=== PATIENT | female | born 1950 | race Caucasian/White ===

== ENCOUNTER 2023-05-03 08:43 | Emergency (ER) | payer MEDICARE, SELFPAY ==
[2023-05-03 09:10] VITALS: BP 160/75; PULSE 63; RESP 16; TEMP 36.6; O2SAT 99; BMI 28.5
--- NOTE | 2023-05-03 09:19 | ED_ITS ---
HPI - Neck Pain/Injury General: Chief Complaint: Neck Pain/Injury Stated Complaint: neck pain 2xweeks Time Seen by Provider: 05/03/23 09:18 Source: patient Mode of arrival: ambulatory Limitations: no limitations History of Present Illness: Patient is a nice 72-year-old female presents to ED today with a complaint of right-sided neck pain that she has had over the past 2 weeks. She denies any known injury or trauma. He states pain seems to be worse with range of motion of her neck and her right shoulder. She denies any numbness, tingling, loss of sensation, or paresthesias or weakness to the upper extremities. She has not noticed any facial drooping/deficits. Does not complain of a headache, visual changes, or tinnitus. Patient has not been running fevers. No vomiting. She was seen in the walk-in clinic and given Flexeril and Voltaren gel which do not seem to be helping with pain. MD complaint: neck pain Onset (ago): week(s) Place: home Radiation: right lateral and right shoulder Severity: moderate Severity scale (1-10): 7 Quality: sharp, aching and spasming Duration: constant Relieving factors: none Exacerbating factors: movement of extremity and movement of neck Associated symptoms: Reports no associated symptoms; Denies dizziness, headache(s) or nausea Treatments prior to arrival: cold therapy, heat therapy and other (flexeril, Voltaren gel, aspirin) Review of Systems Const: Denies: fever(s), chills, body aches, fatigue or malaise Eyes: Denies: change in vision, blurry vision or blind spots ENMT: Denies: tinnitus Card: Denies: chest pain Resp: Denies: dyspnea GI: Denies: nausea or vomiting Musc: Reports: neck pain; Denies: back pain, extremity pain, extremity swelling, joint pain or joint swelling Skin/Breast: Denies: rash Neuro: Denies: headache(s), numbness in extremities, weakness in extremities, sensory changes or dizziness Physical Exam Const: COMMON NORMALS: no acute distress, average body habitus, patient oriented x3, no limitations, healthy appearing, alert and well nourished ORIENTATION/CONSCIOUSNESS: Yes awake, Yes oriented to person, Yes oriented to place and Yes oriented to time HENMT: COMMON NORMALS: normocephalic and atraumatic HEAD & SCALP: normal to inspection, normocephalic and atraumatic FACE & SINUS: normal facial exam and face symmetric Eye: COMMON NORMALS: Equal, round and reactive pupils present and EOMs intact bilaterally GENERAL EYE: appearance normal, both eyes and all related structures and normal light reflex PUPIL: Yes Equal, round and reactive pupils present DIRECT OPHTHALMOSCOPY: Yes normal light reflex OTHER: no Wen's Neck/C-Spine: COMMON NORMALS: no lymphadenopathy, supple, no meningeal signs, no JVD, Thyroid normal and No carotid bruits GENERAL: Yes normal visual inspection THYROID: Thyroid normal CERVICAL SPINE: Yes pain with cervical ROM, No Cervical spine tenderness, No step off deformity, Yes Paracervical muscle tenderness right and Yes Paracervical spasm right Resp: COMMON NORMALS: normal respiratory effort and clear to auscultation bilaterally AUSCULTATION: clear to auscultation bilaterally Cardio: COMMON NORMALS: no JVD, regular rate and regular rhythm RATE: regular rate RHYTHM: regular rhythm Extremity: COMMON NORMALS: normal to inspection, full ROM, capillary refill normal, no joint enlargement, no clubbing, cyanosis or edema, no calf tenderness and no pedal edema GENERAL: Yes normal exam except as noted Neuro: LOGAN COMA SCALE: document GCS findings Logan coma scale eye opening: Spontaneous [place] coma scale verbal response: Orientated Logan coma scale motor response: Obey commands [place] coma scale total score: 15 COMMON NORMALS: patient oriented x3, CN's II-XII intact bilaterally, moves all extremities, no focal motor deficits and no sensory deficits noted SENSORIUM/ORIENTATION: Yes alert, Yes oriented to person, Yes oriented to place and Yes oriented to time MENINGEAL SIGNS: Yes no meningeal signs MOTOR EXAM: 5/5 motor strength present throughout Skin: COMMON NORMALS: no rashes or lesions noted GENERAL SKIN EXAM: no rashes or lesions noted Course Vital Signs: Vital signs: Vital Signs Temperature 97.9 F 05/03/23 09:10 Pulse Rate 63 05/03/23 09:10 Respiratory Rate 16 05/03/23 09:10 Blood Pressure 160/75 05/03/23 09:10 Pulse Oximetry 99 05/03/23 09:10 Oxygen Delivery Me thod Room Air 05/03/23 09:10 MDM - Neck Pain/Injury Medical Decision Making Patient is a nice 72-year-old female who presented to ED today with a complaint of right-sided neck pain over the past 2 weeks. She feels like pain is a dull baseline pain with exacerbations that she describes as spasms that seem to be brought on with movement of her neck or right shoulder. She does not describe any paresthesias, numbness, tingling, loss of sensation, weakness to her upper extremities or anything that would be concerning for a cervical root lesion/cervical radiculopathy. She has no headache, Wen's syndrome, cranial neuropathy, pulsatile tinnitus, or ischemic/TIA symptoms that would suggest dissection. Patient was treated with IM toradol, norflex, and dexamethasone and she is currently rating her pain at a 2/10 which is much improved on presentation. Treat with similar medications at home. We will have her discontinue the Flexeril as she states this has not helped much and will try Valium instead. Recommend follow-up with primary care this week if symptoms do not seem to be improving. Strict return ED precautions given. Discharge Plan Discharge Patient Disposition: Home Clinical Impression: Neck muscle spasm Neck muscle strain Qualifiers: Encounter type: initial encounter Qualified Code(s): S16.1XXA - Strain of muscle, fascia and tendon at neck level, initial encounter Condition: Stable Prescriptions: New Valium 5 mg tablet 5 mg PO Q6H PRN (Reason: muscle spasm) Qty: 20 0RF ibuprofen 600 mg tablet 600 mg PO Q8H PRN (Reason: pain) Qty: 20 0RF prednisone 10 mg tablet 40 mg PO DAILY 5 Days Qty: 30 0RF Discontinued cyclobenzaprine 5 mg tablet 5 mg PO TID PRN (Reason: muscle spasm) Qty: 14 0RF No Action amlodipine 5 mg tablet 5 mg PO DAILY Women's 50+ Daily Form (gkb) 400-120 mcg-mg Tablet 1 tab PO DAILY Discharge Orders: Discharge ED (Routine); Ordered 05/03/23 Ordered By: Jennifer Sagastume Patient Instructions: Spasmodic Torticollis (ED), Muscle Spasm (ED) Coding Level of Care Code ED Gate Shear Operator for Bob Engle
[2023-05-03] MEDS: orphenadrine 30 mg/mL Inj 2 mL 60 MG IM (09:53)
[2023-05-03] MEDS: dexamethasone 10 mg/mL INJ 8 MG IM (09:56)
[2023-05-03] MEDS: ketorolac 30 mg/mL INJ IM (09:58)
--- NOTE | 2023-05-07 11:19 | DCPLANNER ---
media production support manager called patient due to no primary care physician - no answer at this time.
--- NOTE | 2023-05-10 13:58 | DCPLANNER ---
Addendum entered by Cheli Kirkpatrick 05/13/23 10:38: Patient attended appointment scheduled with Dr. Ríos at [facility] Original Note: Patient called case worker, she wanted help in getting established with a primary care physician. reproduction production manager called [facility], gave clinic patients information, a follow up appointment was scheduled for April at 10:[address] Ríos. reproduction production manager gave patient the appointment information.
== END 2023-05-03 10:57 | disposition home or self-care (01) ==
PROVIDERS: Emergency Provider Physician Assistant; PCP Family Medicine Adult Medicine
DX: S16.1XXA Strain of muscle, fascia and tendon at neck level, initial encounter (principal); X58.XXXA Exposure to other specified factors, initial encounter
CPT/HCPCS: 96372; 99284; J1100; J1885; J2360

== ENCOUNTER 2023-06-09 18:02 | Emergency (ER) | payer MEDICARE, SELFPAY ==
[2023-06-09] VITALS (18 sets, daily range): BP systolic 122–173; BP diastolic 68–84; PULSE 69–73; RESP 16; TEMP 36.6; O2SAT 95–99
--- NOTE | 2023-06-09 18:42 | W.ED.ABDPA2 ---
HPI - Abdominal Pain General: Chief Complaint: Abdominal Pain Stated Complaint: stomache pain, urgent care sent over Time Seen by Provider: 06/09/23 18:23 History of Present Illness: Patient presents to the ER from urgent care with complaints of epigastric pain severe in nature for the last 4 days worsening. Patient states the pain is a burning and does not radiate anywhere. Patient does have guarding to her upper abdomen rates pain a 10 out of 10. Patient does not remember eating any irritating foods or anything it made this pain come on or go away. Patient is denying nausea and vomiting at this time. Patient has had her gallbladder out. Review of Systems General: Reports: 10 or more systems reviewed and unremarkable except in HPI and below PFSH ED PFSH: Medical History Cirrhosis of liver without ascites Cyst of kidney, acquired Hypertension Neck muscle spasm Neck muscle strain Swollen lymph nodes Resolved after gallbladder surgery Surgical History H/O section H/O oophorectomy History of cholecystectomy History of tonsillectomy Hx of appendectomy Hx of tubal ligation Family History Father Emphysema lung Mother Cancer Social History Smoking and tobacco status: former smoker Quit status (tobacco): has quit using tobacco Second hand smoke exposure: No Smoking risk assessment/counseling performed?: No Alcohol intake: former Desire information about alcohol rehabilitation?: No Counseling given: No Substance/Drug Use: never Desire information about substance/drug rehabilitation?: No Counseling given: No Physical Exam Const: COMMON NORMALS: no acute distress, average body habitus, patient oriented x3, no limitations, healthy appearing, alert and well nourished HENMT: COMMON NORMALS: normocephalic, atraumatic, hearing grossly normal bilaterally, external ears normal, Normal external nose present and moist oral mucous membranes HEAD & SCALP: normocephalic and atraumatic NOSE: Normal external nose present EXTERNAL EAR: Yes external ears normal Eye: COMMON NORMALS: Equal, round and reactive pupils present, EOMs intact bilaterally, conjunctivae normal and no scleral icterus CONJUNCTIVA: Yes conjunctivae normal PUPIL: Yes Equal, round and reactive pupils present Neck/C-Spine: COMMON NORMALS: full ROM, no lymphadenopathy, supple, no meningeal signs and no JVD Chest: COMMONS NORMALS: normal inspection of the chest and normal palpation of entire chest wall Resp: COMMON NORMALS: normal respiratory effort, No retractions, No use of accessory muscles and clear to auscultation bilaterally AUSCULTATION: clear to auscultation bilaterally Cardio: COMMON NORMALS: no JVD, regular rate, regular rhythm, S1 normal heart sound present, S2 normal heart sound present, No gallops present (Cardio), No clicks present (Cardio), No murmurs present (Cardio) and No rub (Cardio) RATE: regular rate RHYTHM: regular rhythm HEART SOUNDS: S1 normal heart sound present and S2 normal heart sound present GI: COMMON NORMALS: Normal to inspection, nondistended, normoactive bowel sounds present, Soft to palpation, No hepatosplenomegaly present and no masses; negative for non-tender (Tender to palpate worse over epigastric and right upper quadrant region.) PALPATION: Yes Soft to palpation and Yes No hepatosplenomegaly present : COMMON NORMALS: Yes no CVA tenderness BLADDER/KIDNEY EXAM: Yes no CVA tenderness Back/Pelvis: COMMON NORMALS: no CVA tenderness Neuro: COMMON NORMALS: patient oriented x3 SENSORIUM/ORIENTATION: Yes alert MENINGEAL SIGNS: Yes no meningeal signs Course Vital Signs: Vital signs: Vital Signs Temperature 97.9 F 06/09/23 18:28 Pulse Rate 69 06/09/23 19:06 Respiratory Rate 16 06/09/23 19:03 Blood Pressure 122/79 06/09/23 23:20 Pulse Oximetry 96 06/09/23 23:20 Oxygen Delivery Me thod Room Air 06/09/23 19:06 MDM - Abdominal Pain Medical Decision Making Patient presents to the ER with complaints of upper epigastric pain for the last 4 days. Patient had lab work which revealed her elevated liver enzymes and bilirubin. Patient had a CT scan with contrast which revealed to stones in her common bile duct. We called [facility] in [place] Jessica was the first 1 to talk to us and call us back. Dr. Samuel will be the accepting physician. Differential Diagnosis Unlikely abdominal pain, acute appendicitis, calculus of kidney, constipation, diverticulitis, endometriosis, gastroenteritis, pancreatitis or small bowel obstruction Medical Records I reviewed the patient's medical records. Lab Data I reviewed the patient's lab results. 06/09/23 19:00 06/09/23 19:00 Labs/Radiology: Radiology Impressions Abdomen/Pelvis CT 06/09/23 19:35 IMPRESSION: Exam demonstrates at least 2 distal common bile duct stones without significant biliary tree dilation. There also appears to be a calculus in the cystic stump. Laboratory Results WBC 9.53 10^3/uL (3.29-11.43) 06/09/23 19:00 RBC 5.71 10^6/uL (3.85-5.65) H 06/09/23 19:00 Hgb 16.50 g/dL (11.27-16.99) 06/09/23 19:00 Hct 51.8 % (36-47) H 06/09/23 19:00 MCV 90.7 fl (85-98) 06/09/23 19:00 MCH 28.9 pg (27-33) 06/09/23 19: MCHC 31.9 g/dL (30-55) 06/09/23 19:00 RDW 14.4 % (12.1-15.1) 06/09/23 19:00 Plt Count 211 10^3/cmm (157-399) 06/09/23 19:00 MPV 11.7 fL (7.4-10.4) H 06/09/23 19:00 Neut % (Auto) 82.7 % 06/09/23 19:00 Lymph % (Auto) 8.5 % 06/09/23 19:00 Noble % (Auto) 6.3 % 06/09/23 19:00 Eos % (Auto) 1.7 % 06/09/23 19:00 Baso % (Auto) 0.5 % 06/09/23 19:00 Neut # (Auto) 7.88 10^3/uL (1.8-7.7) H 06/09/23 19:00 Lymph # (Auto) 0.8 10^3/uL (0.8-4.8) 06/09/23 19:00 Noble # (Auto) 0.6 10^3/uL (0.2-0.9) 06/09/23 19:00 Eos # (Auto) 0.2 10^3/uL (0.0-0.8) 06/09/23 19:00 Baso # (Auto) 0.1 10^3/uL (0.0-0.1) 06/09/23 19:00 Nucleated RBC % (auto) 0 % 06/09/23 19:00 Nucleated RBCs # 0.0 /100WBC 06/09/23 19:00 Sodium 137 mmol/L (136-145) 06/09/23 19:00 Potassium 3.9 mmol/L (3.5-5.1) 06/09/23 19:00 Chloride 103 mmol/L (98-107) 06/09/23 19:00 Carbon Dioxide 23 mmol/L (22-29) 06/09/23 19:00 Anion Gap 14.9 (5-19) 06/09/23 19:00 BUN 19 mg/dL (8-23) 06/09/23 19:00 Creatinine 1.4 mg/dL (0.5-0.9) H 06/09/23 19:00 GFR Calculation Not Reportable 06/09/23 19:00 Glucose 97 mg/dL (65-115) 06/09/23 19:00 Calculated Osmolality 286 mOsm/kg (285-295) 06/09/23 19:00 Calcium 10.3 mg/dL (8.5-10.5) 06/09/23 19:00 Magnesium 2.4 mg/dL (1.7-2.3) H 06/09/23 19:00 Total Bilirubin 5.8 mg/dL (0.15-1.2) H 06/09/23 19:00 Direct Bilirubin 4.80 mg/dL (0.00-0.30) H 06/09/23 19:00 AST 173 U/L (0-32) H 06/09/23 19:00 ALT 216 U/L (0-33) H 06/09/23 19:00 Alkaline Phosphatase 378 U/L (35-105) H 06/09/23 19:00 Total Protein 7.3 g/dL (6.6-8.7) 06/09/23 19:00 Albumin 3.9 g/dL (3.5-5.2) 06/09/23 19:00 Globulin 3.4 g/dL (1.3-4.6) 06/09/23 19:00 Lipase 97 U/L (13-60) H 06/09/23 19:00 Urine Color Yellow (Yellow) 06/09/23 20:32 Urine Appearance Sl hazy (CLEAR) A 06/09/23 20:32 Urine pH 5 (5-7) 06/09/23 20:32 Ur Specific [place] 1.015 (1.005-1.030) 06/09/23 20:32 Urine Protein 1+ (Negative) H 06/09/23 20:32 Urine Glucose (UA) Trace (Normal) H 06/09/23 20:32 Urine Ketones 1+ (Negative) H 06/09/23 20:32 Urine Blood Neg (Negative) 06/09/23 20:32 Urine Nitrate Negative (Negative) 06/09/23 20:32 Urine Bilirubin 2+ (Negative) H 06/09/23 20:32 Urine Urobilinogen 4 mg/dL (Negative) H 06/09/23 20:32 Ur Leukocyte Esterase 1+ (Negative) H 06/09/23 20:32 Urine RBC None /hpf (0-2) 06/09/23 20:32 Urine WBC 5-10 /hpf (0-5) H 06/09/23 20:32 Ur Squamous Epith Cells 0-4 /hpf (0-5) H 06/09/23 20:32 Calcium Oxalate Crystal 10-15 /hpf H 06/09/23 20:32 Amorphous Sediment Not Reportable 06/09/23 20:32 Urine Bacteria 1+ /hpf (NONE) H 06/09/23 20:32 Discharge Plan Discharge Patient Disposition: Xfer Short-Term Hosp Clinical Impression: Choledocholithiasis Condition: Stable Coding Level of Care Code ED Auto Bench Mechanic for Yoselyng Kadie
[2023-06-09] MEDS: fentaNYL 50 mcg/mL INJ 2mL IVP (19:03)
[2023-06-09 19:10] LABS: Basophils # 0.1 10^3/uL (0.0-0.1); Basophils % 0.5 %; Eosinophils # 0.2 10^3/uL (0.0-0.8); Eosinophils % 1.7 %; Hematocrit 51.8 % (36-47); Lymphocytes # 0.8 10^3/uL (0.8-4.8); Lymphocytes % 8.5 %; Mean Corpuscular HGB Conc 31.9 g/dL (30-55); Mean Corpuscular Hemoglobin 28.9 pg (27-33); Mean Corpuscular Volume 90.7 fl (85-98); Mean Platelet Volume 11.7 fL (7.4-10.4); Monocytes # 0.6 10^3/uL (0.2-0.9); Monocytes % 6.3 %; Neutrophils # 7.88 10^3/uL (1.8-7.7); Neutrophils % 82.7 %; Nucleated Red Blood Cells % 0 %; Platelet Count 211 10^3/cmm (157-399); Red Blood Count 5.71 10^6/uL (3.85-5.65); Red Cell Distribution Width 14.4 % (12.1-15.1); White Blood Count 9.53 10^3/uL (3.29-11.43)
[2023-06-09 19:25] LABS: Alanine Aminotransferase 216 U/L (0-33); Albumin Level 3.9 g/dL (3.5-5.2); Alkaline Phosphatase 378 U/L (35-105); Anion Gap 14.9 (5-19); Aspartate Amino Transferase 173 U/L (0-32); Blood Urea Nitrogen 19 mg/dL (8-23); Calcium 10.3 mg/dL (8.5-10.5); Carbon Dioxide 23 mmol/L (22-29); Chloride 103 mmol/L (98-107); Globulin 3.4 g/dL (1.3-4.6); Glucose 97 mg/dL (65-115); Lipase 97 U/L (13-60); Magnesium 2.4 mg/dL (1.7-2.3); Osmolality Calculated 286 mOsm/kg (285-295); Potassium 3.9 mmol/L (3.5-5.1); Sodium 137 mmol/L (136-145); Total Bilirubin 5.8 mg/dL (0.15-1.2); Total Protein 7.3 g/dL (6.6-8.7)
--- NOTE | 2023-06-09 19:35 | CTR_ITS ---
PROCEDURE INFORMATION: Exam: CT Abdomen And Pelvis With Contrast Exam date and time: 06/09/2023 7:58 PM Age: 73 years old Clinical indication: Abdominal pain; Epigastric; Prior surgery; Surgery date: 6+ months; Surgery type: Appy , darek, ovary removed; Additional info: Epigastric abd pain, elevated lfts and bilirubin, TECHNIQUE: Imaging protocol: Computed tomography of the abdomen and pelvis with contrast. Radiation optimization: All CT scans at this facility use at least one of these dose optimization techniques: automated exposure control; mA and/or kV adjustment per patient size (includes targeted exams where dose is matched to clinical indication); or iterative reconstruction. Contrast material: OMNI 350; Contrast volume: 100 ml; Contrast route: INTRAVENOUS (IV); REPORTING DATA: Count of CT and Cardiac NM exams in prior 12 months: This patient has received 0 known CTs and 0 known cardiac nuclear medicine studies in the 12 months prior to the current study. COMPARISON: No relevant prior studies available. RADIATION DOSE METRICS: Total DLP (mGy-cm): 569 FINDINGS: Lungs: Clear basilar lung parenchyma. Pleural spaces: No pleural fluid. Heart: Normal heart size. Diaphragm: Tiny sliding hiatal hernia. Liver: Normal configuration. Homogeneous parenchyma. Gallbladder and bile ducts: Prior cholecystectomy. There appears to be a calculus in the cystic duct stump. There is no biliary tree dilation, but there are at least 2 hyperdense foci in the distal common bile duct compatible with common duct stones. The more distal calculus measures 3 mm in diameter and the more proximal measures 2 mm in diameter. Pancreas: Normal. No ductal dilation. Spleen: Normal. No splenomegaly. Adrenal glands: Normal configuration. Kidneys and ureters: No evidence of obstruction. No visible inflammation. Stomach and bowel: Postprandial stomach. Normal caliber small bowel. Distal colonic diverticulosis without evidence of acute diverticulitis. Appendix: Prior appendectomy. Intraperitoneal space: No free air. No significant fluid collection. Vasculature: Mild aortoiliac calcific atherosclerosis without aneurysm. Lymph nodes: Anterior cardiophrenic lymph node measures 6 mm short axis diameter. No enlarged adenopathy elsewhere. Urinary bladder: Bladder is decompressed with mild nonspecific mural thickening. Reproductive: Physiologic appearance for age. Bones/joints: Mild lumbar dextroscoliosis. No destructive bony lesions. Soft tissues: Unremarkable. CT/CT abdomen pelvis w con* [id number] IMPRESSION: Exam demonstrates at least 2 distal common bile duct stones without significant biliary tree dilation. There also appears to be a calculus in the cystic stump.
[2023-06-09 20:54] LABS: Glucose Urine UA Trace (Normal); Protein Urine 1+ (Negative); Specific Gravity, Urine 1.015 (1.005-1.030); Urine Appearance SL Hazy (CLEAR); Urine Color Yellow (Yellow); pH Urine 5 (5-7)
[2023-06-09 20:55] LABS: Add Urine Culture? No; Add Urine Microscopic? YES; Bacteria Urine 1+ /hpf; Bilirubin Urine 2+ (Negative); Blood Urine Neg (Negative); Ketones Urine 1+ (Negative); Leukocyte Esterase Urine 1+ (Negative); Nitrate Urine Negative (Negative); Squamous Epithelial Cell Urine 0-4 /hpf (0-5); Urobilinogen Urine 4 mg/dL (Negative)
[2023-06-10] VITALS (18 sets, daily range): BP systolic 149–158; BP diastolic 74–82; PULSE 67; O2SAT 92–98
== END 2023-06-10 01:23 | disposition short-term general hospital (02) ==
PROVIDERS: Emergency Provider Emergency Medicine
DX: K80.50 Calculus of bile duct without cholangitis or cholecystitis without obstruction (principal); I10 Essential (primary) hypertension; Z87.891 Personal history of nicotine dependence
CPT/HCPCS: 74177; 80053; 81001; 82248; 83690; 83735; 85025; 96374; 99284; J3010; Q9967

== ENCOUNTER 2024-02-16 10:32 | Outpatient (CLI) | payer MEDICARE, SELFPAY ==
--- NOTE | 2024-02-16 10:34 | USCV_ITS ---
Jesenia Wetzel Age: 73 Gender: F : 1950 Exam Date: 02/16/2024 10:49 Ordering Phys: Pretty Gamboa DO Technologist: RUTH Exam Location: [facility] – [place] Indication: LE PAIN Risk Factors: Previous Vascular Surgery: RIGHT LEFT BP: 146.0 / 68.00 BP: 158.0/ 70.00 0 0 Waveform Velocity (cm/s) Velocity (cm/s) Waveform Triphasic 98.9 Iliac Prox 97.6 Triphasic Triphasic 104.1 Iliac Mid 87.4 Triphasic Triphasic 119.0 Iliac Distal 86.2 Triphasic Triphasic 150.0 STORE STOCKER 140.0 Triphasic Biphasic 94.0 SFA Prox 84.0 Monophasic Biphasic 109.0 SFA Mid 110.0 Monophasic Triphasic SFA Dist Monophasic 143.0 46.0 Triphasic 60.0 POP 32.0 Monophasic Biphasic 63.0 FIBER [employer]IC ASSEMBLY WORKER 28.0 Monophasic Biphasic 50.0 DPA 15.0 Monophasic 0.8 OTTO 0.5 FINDINGS Mild diffuse plaque in the iliac, femoral and popliteal arteries on the right side. Resting OTTO on the right zero 0.8. Mild to moderate diffuse plaques in the aortic and iliac and femoral arteries on the left side. Monophasic and continuous waveforms in the mid and distal SFA, popliteal and infrapopliteal vessels on the left side. Resting OTTO 0.5 on the left side CONCLUSIONS 1. Slightly diminished resting OTTO on the right side of 0.8, suggesting mild peripheral artery disease. Mild diffuse plaques are noted in the iliac, femoral and popliteal arteries on the right side. 2. Abnormal resting OTTO of 0.5 on the left side suggesting severe peripheral artery disease. The Doppler waveforms may suggest the level of obstruction at the SFA. No similar previous studies are available for comparison Dr Clive Choi MD [facility] (Electronically Signed) Final Date: 17 Feb 2024 09:06 S
== END 2024-02-16 10:33 | disposition home or self-care (01) ==
LOC: RAD 10:32
PROVIDERS: Visit Provider Family Medicine
DX: R09.89 Other specified symptoms and signs involving the circulatory and respiratory systems (principal); M79.605 Pain in left leg; M79.604 Pain in right leg; R93.6 Abnormal findings on diagnostic imaging of limbs
CPT/HCPCS: 93925

== ENCOUNTER 2024-02-17 10:44 | Outpatient (CLI) | payer MEDICARE, SELFPAY ==
--- NOTE | 2024-02-17 10:51 | MM_ITS ---
WS: [id number] BILATERAL 3D TOMOSYNTHESIS DIGITAL DIAGNOSTIC MAMMOGRAPHY WITH CAD CLINICAL INFORMATION: FAMILY HX OF BREAST CANCER/BILAT BREAST PAIN HISTORY: Pain in RIGHT breast COMPARISON: None. TECHNIQUE: Bilateral CC, MLO, and ML views. FINDINGS: Scattered fibroglandular densities bilaterally. Palpable marker overlying the lower inner RIGHT breas t. Lobulated nodule at the 6 o'clock position near the palpable marker on some images. Ultrasound of this area is pending. Nodule measures approximately 8 mm. This persists on the spot compression image s. Few incidental punctate calcifications. LEFT breast is otherwise unremarkable. Vascular calcification . ULTRASOUND BREAST RIGHT TECHNIQUE: Ultrasound right breast focused area of concern. CLINICAL INFORMATION: FAMILY HX OF BREAST CANCER/BILAT BREAST PAIN FINDINGS: Ultrasound RIGHT breast in the area of concern and 6 o'clock position. Normal underlying dense parenc hymal tissue in the area of pain at the 4 o'clock position. No suspicious findings in this area. Ultrasound 6 o'clock position demonstrates an incidental cyst measuring approximately 6 x 7 x 8 mm wi th a tiny amount of debris. This has a benign appearance. This corresponds to the lobulated nodule on mammography. No other suspicious findings. MM/[place] [id number] IMPRESSION: BI-RADS: 2-Benign FOLLOW UP: 1 Year Follow-up Recommend return to annual screening mammography.
== END 2024-02-17 10:45 | disposition home or self-care (01) ==
LOC: RAD 10:45
PROVIDERS: PCP Family Medicine; Visit Provider Nurse Practitioner Family
DX: N64.4 Mastodynia (principal); R92.323 Mammographic fibroglandular density, bilateral breasts; N63.13 Unspecified lump in the right breast, lower outer quadrant; R92.1 Mammographic calcification found on diagnostic imaging of breast; Z80.3 Family history of malignant neoplasm of breast
CPT/HCPCS: 76642; 77062; G0279

== ENCOUNTER 2024-03-01 15:12 | Outpatient (CLI) | payer MEDICARE, SELFPAY ==
[2024-03-01 16:18] LABS: Basophils # 0.1 10^3/uL (0.0-0.1); Basophils % 1.4 %; Eosinophils # 0.5 10^3/uL (0.0-0.8); Eosinophils % 8.9 %; Hematocrit 45.8 % (36-47); Lymphocytes # 1.2 10^3/uL (0.8-4.8); Lymphocytes % 21.4 %; Mean Corpuscular HGB Conc 32.5 g/dL (30-55); Mean Corpuscular Volume 92.3 fl (85-98); Mean Platelet Volume 11.2 fL (7.4-10.4); Monocytes # 0.5 10^3/uL (0.2-0.9); Neutrophils # 3.35 10^3/uL (1.8-7.7); Neutrophils % 59.9 %; Nucleated Red Blood Cells % 0 %; Platelet Count 187 10^3/cmm (157-399); Red Blood Count 4.96 10^6/uL (3.85-5.65); Red Cell Distribution Width 13.8 % (12.1-15.1)
[2024-03-01 16:50] LABS: Creatinine Urine, Random 57 mg/dL (28-217); Microalbum Creatinine Ratio Ur 35 mg/dL (0-20); Microalbumin Random Urine 2 ug/dL (0-20)
[2024-03-01 17:10] LABS: 25 Hydroxy Vitamin D 32 ng/mL (30-100); Albumin Level 3.8 g/dL (3.5-5.2); Anion Gap 17.8 (5-19); Blood Urea Nitrogen 34 mg/dL (8-23); Calcium 9.7 mg/dL (8.5-10.5); Carbon Dioxide 20 mmol/L (22-29); Chloride 105 mmol/L (98-107); Glucose 77 mg/dL (65-115); Magnesium 2.3 mg/dL (1.7-2.3); Phosphorus 2.8 mg/dL (2.5-4.5); Potassium 3.8 mmol/L (3.5-5.1); Sodium 139 mmol/L (136-145)
[2024-03-01 17:32] LABS: Calcium 9.6 mg/dL (8.5-10.5)
[2024-03-03 08:31] LABS: PROTEIN, TOTAL 6.6 g/dL (6.1-8.1)
[2024-03-03 15:30] LABS: ABNORMAL PROTEIN BAND 1 0.2 g/dL (NONE DETECTED); ALBUMIN 3.6 g/dL (3.8-4.8); ALPHA 1 GLOBULIN 0.3 g/dL (0.2-0.3); ALPHA 2 GLOBULIN 0.8 g/dL (0.5-0.9); BETA 1 GLOBULIN 0.4 g/dL (0.4-0.6); BETA 2 GLOBULIN 0.4 g/dL (0.2-0.5); GAMMA GLOBULIN 1.1 g/dL (0.8-1.7)
== END 2024-03-01 15:13 | disposition home or self-care (01) ==
LOC: LAB 15:15
PROVIDERS: PCP Family Medicine; Visit Provider Internal Medicine Nephrology
DX: N18.32 Chronic kidney disease, stage 3b (principal); N18.4 Chronic kidney disease, stage 4 (severe)
CPT/HCPCS: 36415; 80069; 82044; 82306; 82310; 83735; 83970; 84155; 84165; 85025

== ENCOUNTER 2024-03-16 09:28 | Outpatient (CLI) | payer MEDICARE, SELFPAY ==
--- NOTE | 2024-03-16 09:35 | US_ITS ---
WS: [id number] Exam: US renal BI* [id number] Date/Time of Exam: 03/16/2024 9:36 AM Reason For Exam: CHRONIC KIDNEY DZ STAGE 3B Very mild bilateral renal atrophy noted. No sign of solid renal mass. 1 cm cyst in the RIGHT kidney. No sign of renal obstruction. The RIGHT kidney measures 8.3 x 4 x 3 cm. The LEFT kidney measures 8.5 x 5.1 x 4.4 cm. Cortical thickness of the RIGHT kidney was 0.9 cm, for the LEFT kidney 0.8 cm. The ur inary bladder was incompletely distended for accurate evaluation. US/US renal BI* [id number] IMPRESSION: 1. Very mild bilateral renal atrophy. 2. 1 cm RIGHT renal cyst. 3. No other significant finding.
== END 2024-03-16 09:29 | disposition home or self-care (01) ==
PROVIDERS: PCP Family Medicine; Visit Provider Internal Medicine
DX: N18.32 Chronic kidney disease, stage 3b (principal); N28.1 Cyst of kidney, acquired
CPT/HCPCS: 76770

== ENCOUNTER 2024-03-21 09:13 | Outpatient (CLI) | payer MEDICARE, SELFPAY ==
[2024-03-22 09:40] LABS: PROTEIN, TOTAL 6.9 g/dL (6.1-8.1)
[2024-03-22 12:50] LABS: ABNORMAL PROTEIN BAND 1 0.2 g/dL (NONE DETECTED); ALBUMIN 3.4 g/dL (3.8-4.8); ALPHA 1 GLOBULIN 0.4 g/dL (0.2-0.3); ALPHA 2 GLOBULIN 0.8 g/dL (0.5-0.9); BETA 1 GLOBULIN 0.5 g/dL (0.4-0.6); BETA 2 GLOBULIN 0.5 g/dL (0.2-0.5); GAMMA GLOBULIN 1.2 g/dL (0.8-1.7)
== END 2024-03-21 09:14 | disposition home or self-care (01) ==
PROVIDERS: PCP Family Medicine; Visit Provider Registered Nurse
DX: N18.32 Chronic kidney disease, stage 3b (principal)
CPT/HCPCS: 36415; 84155; 84165; 86334

== ENCOUNTER 2024-06-19 12:28 | Outpatient (CLI) | payer MEDICARE, SELFPAY ==
[2024-06-19 12:57] LABS: Basophils # 0.1 10^3/uL (0.0-0.1); Basophils % 1.3 %; Eosinophils # 0.2 10^3/uL (0.0-0.8); Eosinophils % 4.5 %; Hematocrit 48.3 % (36-47); Lymphocytes # 1.2 10^3/uL (0.8-4.8); Lymphocytes % 25.6 %; Mean Corpuscular HGB Conc 31.3 g/dL (30-55); Mean Corpuscular Volume 92.7 fl (85-98); Mean Platelet Volume 11.4 fL (7.4-10.4); Monocytes # 0.4 10^3/uL (0.2-0.9); Monocytes % 9.5 %; Neutrophils # 2.74 10^3/uL (1.8-7.7); Neutrophils % 58.9 %; Nucleated Red Blood Cells % 0 %; Platelet Count 166 10^3/cmm (157-399); Red Blood Count 5.21 10^6/uL (3.85-5.65); Red Cell Distribution Width 13.6 % (12.1-15.1); White Blood Count 4.65 10^3/uL (3.29-11.43)
[2024-06-19 13:17] LABS: Blood Urea Nitrogen 24 mg/dL (8-23); Calcium 10.2 mg/dL (8.5-10.5); Carbon Dioxide 20 mmol/L (22-29); Chloride 108 mmol/L (98-107); Glucose 86 mg/dL (65-115); Phosphorus 3.4 mg/dL (2.5-4.5); Sodium 139 mmol/L (136-145)
[2024-06-19 13:19] LABS: Creatinine Urine, Random 111 mg/dL (28-217); Microalbum Creatinine Ratio Ur 36 mg/dL (0-20); Microalbumin Random Urine 4 ug/dL (0-20)
[2024-06-19 13:20] LABS: Anion Gap 15.4 (5-19); Potassium 4.4 mmol/L (3.5-5.1)
== END 2024-06-19 12:29 | disposition home or self-care (01) ==
LOC: LAB 12:29
PROVIDERS: PCP Family Medicine; Visit Provider Internal Medicine
DX: N18.4 Chronic kidney disease, stage 4 (severe) (principal)
CPT/HCPCS: 36415; 80069; 82044; 85025

== ENCOUNTER 2024-06-27 09:29 | Outpatient (CLI) | payer MEDICARE, SELFPAY ==
[2024-06-27 10:05] LABS: Basophils # 0.1 10^3/uL (0.0-0.1); Basophils % 1.1 %; Eosinophils # 0.3 10^3/uL (0.0-0.8); Eosinophils % 6.5 %; Hematocrit 49.5 % (36-47); Lymphocytes # 1.2 10^3/uL (0.8-4.8); Lymphocytes % 26.1 %; Mean Corpuscular HGB Conc 31.5 g/dL (30-55); Mean Corpuscular Hemoglobin 29.8 pg (27-33); Mean Corpuscular Volume 94.5 fl (85-98); Mean Platelet Volume 11.8 fL (7.4-10.4); Monocytes # 0.3 10^3/uL (0.2-0.9); Monocytes % 7.1 %; Neutrophils # 2.73 10^3/uL (1.8-7.7); Nucleated Red Blood Cells % 0 %; Platelet Count 172 10^3/cmm (157-399); Red Blood Count 5.24 10^6/uL (3.85-5.65); Red Cell Distribution Width 13.9 % (12.1-15.1); White Blood Count 4.63 10^3/uL (3.29-11.43)
[2024-06-27 10:31] LABS: Albumin Level 3.6 g/dL (3.5-5.2); Blood Urea Nitrogen 24 mg/dL (8-23); Calcium 9.6 mg/dL (8.5-10.5); Calcium 9.8 mg/dL (8.5-10.5); Carbon Dioxide 21 mmol/L (22-29); Chloride 106 mmol/L (98-107); Glucose 90 mg/dL (65-115); Phosphorus 3.5 mg/dL (2.5-4.5); Sodium 139 mmol/L (136-145)
[2024-06-27 10:32] LABS: Anion Gap 16.2 (5-19); Potassium 4.2 mmol/L (3.5-5.1)
[2024-06-27 10:36] LABS: Parathyroid Hormone 46.1 pg/mL (15-65)
[2024-06-27 10:36] LABS: Creatinine Urine, Random 113 mg/dL (28-217); Microalbum Creatinine Ratio Ur 27 mg/dL (0-20); Microalbumin Random Urine 3 ug/dL (0-20)
[2024-06-27 10:46] LABS: 25 Hydroxy Vitamin D 34 ng/mL (30-100)
[2024-06-28 11:53] LABS: PROTEIN, TOTAL 6.6 g/dL (6.1-8.1)
[2024-06-29 15:30] LABS: ABNORMAL PROTEIN BAND 1 0.2 g/dL (NONE DETECTED); ALBUMIN 3.6 g/dL (3.8-4.8); ALPHA 1 GLOBULIN 0.3 g/dL (0.2-0.3); ALPHA 2 GLOBULIN 0.8 g/dL (0.5-0.9); BETA 1 GLOBULIN 0.5 g/dL (0.4-0.6); BETA 2 GLOBULIN 0.4 g/dL (0.2-0.5); GAMMA GLOBULIN 1.1 g/dL (0.8-1.7)
== END 2024-06-27 09:30 | disposition home or self-care (01) ==
LOC: LAB 09:30
PROVIDERS: PCP Family Medicine; Visit Provider Internal Medicine Nephrology
DX: N18.32 Chronic kidney disease, stage 3b (principal)
CPT/HCPCS: 80069; 82044; 82306; 82310; 83970; 84155; 84165; 85025; 86334

== ENCOUNTER 2024-08-11 08:21 | Outpatient (CLI) | payer MEDICARE, SELFPAY ==
--- NOTE | 2024-08-11 08:24 | US_ITS ---
WS: [id number] RENAL ULTRASOUND HISTORY: CHRONIC KIDNEY DZ STAGE 3B COMPARISON: 03/16/2024 TECHNIQUE: 2-D and color Doppler imaging of the kidney submitted. Right kidney: 7.9 cm x 4.5 cm x 3.5 cm. Cortex: 0.7 cm Moderate atrophy RIGHT kidney with diffuse thinning of the renal cortex and increased echogenicity. C ortical cyst lower pole 1.0 x 1.2 x 1.0 cm. No hydronephrosis. Left kidney: 9.0 cm x 4.2 cm x 4.4 cm. Cortex: 0.9 cm Low normal size kidney with increased echogenicity. No obstruction. No mass. Aorta: Normal. Urinary Bladder: Nondistended. US/US renal BI* [id number] IMPRESSION: 1. Moderate changes of chronic medical renal disease. 2. Moderate atrophy RIGHT kidney with low normal size LEFT kidney. 3. No renal obstruction.
== END 2024-08-11 08:22 | disposition home or self-care (01) ==
LOC: RAD 08:22
PROVIDERS: PCP Family Medicine; Visit Provider Internal Medicine Nephrology
DX: N18.32 Chronic kidney disease, stage 3b (principal); N26.1 Atrophy of kidney (terminal)
CPT/HCPCS: 76770

== ENCOUNTER 2024-12-12 11:36 | Outpatient (CLI) | payer MEDICARE, SELFPAY ==
[2024-12-12 12:34] LABS: Basophils # 0.1 10^3/uL (0.0-0.1); Basophils % 0.9 %; Eosinophils # 0.3 10^3/uL (0.0-0.8); Eosinophils % 5.9 %; Hematocrit 46.1 % (36-47); Lymphocytes # 1.1 10^3/uL (0.8-4.8); Lymphocytes % 19.2 %; Mean Corpuscular HGB Conc 32.8 g/dL (30-55); Mean Corpuscular Hemoglobin 30.2 pg (27-33); Mean Corpuscular Volume 92.2 fl (85-98); Mean Platelet Volume 11.3 fL (7.4-10.4); Monocytes # 0.5 10^3/uL (0.2-0.9); Monocytes % 7.8 %; Neutrophils # 3.81 10^3/uL (1.8-7.7); Neutrophils % 65.9 %; Nucleated Red Blood Cells % 0 %; Platelet Count 189 10^3/cmm (157-399); White Blood Count 5.78 10^3/uL (3.29-11.43)
[2024-12-12 13:01] LABS: Creatinine Urine, Random 56 mg/dL (28-217); Microalbumin Random Urine 3 ug/dL (0-20)
[2024-12-12 13:03] LABS: Microalbum Creatinine Ratio Ur 54 mg/dL (0-20)
[2024-12-12 13:10] LABS: Anion Gap 15.9 (5-19); Blood Urea Nitrogen 22 mg/dL (8-23); Calcium 10.2 mg/dL (8.5-10.5); Carbon Dioxide 22 mmol/L (22-29); Chloride 106 mmol/L (98-107); Glucose 104 mg/dL (65-115); Phosphorus 2.9 mg/dL (2.5-4.5); Potassium 3.9 mmol/L (3.5-5.1); Sodium 140 mmol/L (136-145)
[2024-12-12 13:14] LABS: Calcium 10.3 mg/dL (8.5-10.5); Parathyroid Hormone 38.9 pg/mL (15-65)
[2024-12-12 13:22] LABS: 25 Hydroxy Vitamin D 29 ng/mL (30-100)
== END 2024-12-12 11:37 | disposition home or self-care (01) ==
LOC: LAB 11:42
PROVIDERS: PCP Family Medicine; Visit Provider Registered Nurse
DX: N18.6 End stage renal disease (principal); D50.9 Iron deficiency anemia, unspecified; D63.1 Anemia in chronic kidney disease; Z94.0 Kidney transplant status
CPT/HCPCS: 36415; 80069; 82044; 82306; 82310; 83970; 85025